=== PATIENT | female | born 1945 | race Caucasian/White ===

== ENCOUNTER → 2016-09-20 | Outpatient (CLI) | payer OTHER ==
--- NOTE | 2016-09-27 08:56 | RSPPFT ---
DATE OF PROCEDURE: 09/20/16 COMMENTS: VOLUMES DYNAMIC: FVC and FEV1 normal STATIC: RV mildly increased; VTG and TLC normal. FLOWS: FEV1% mildly reduced; FEF 25-75 severely reduced. DIFFUSION: Severely reduced. FLOW VOLUME LOOP: Pattern of variable intrathoracic airways obstruction. IMPRESSION: Mild obstructive ventilatory defect with hyperinflation and a severe reduction in diffusion. Minimal change in the FEV1 post-bronchodilator although, the FVC was significantly increased. Clinical correlation is required.
== END ==
LOC: HRSP 13:15
PROVIDERS: ATTEND Internal Medicine
DX: J44.9 Chronic obstructive pulmonary disease, unspecified (principal); R06.02 Shortness of breath
CPT/HCPCS: 94060; 94726; 94729